=== PATIENT | female | born 1935 | race African-American/Black ===

== ENCOUNTER 2022-03-07 14:40 | Emergency (ER) | payer OTHER, MEDICAID ==
[~2022-03-07] VITALS: Ht 162.6 cm; Wt 54.5 kg
[2022-03-07] MEDS ORDERED: NIFE-33 PO (14:59)
[2022-03-07] MEDS ORDERED: HYDR-4134 PO (14:59)
[2022-03-07 16:17] LABS: BASOPHILS % 0.5 % (0.0-2.0); HEMATOCRIT. 34.8 % (36.0-48.0); LYMPHOCYTES % 20.3 % (20.0-50.0); MEAN CORPUSCULAR HEMOGLOBIN 26.2 pg (28.0-32.0); MEAN CORPUSCULAR VOLUME 83.3 fL (81.0-99.0); MEAN PLATELET VOLUME 9.3 fl (7.4-10.4); MONOCYTES % 10.7 % (2.0-8.0); NEUTROPHILS % 67.5 % (40.0-76.0); PLATELET 211 x1000/uL (130-400); RED BLOOD CELL COUNT 4.18 mill/uL (4.2-5.4); RED CELL DISTRIBUTION WIDTH 16.2 % (11.6-14.6)
[2022-03-07 16:22] LABS: CHLORIDE 107 mEq/L (98-107)
[2022-03-07 18:16] VITALS: BP 154/66
== END 2022-03-07 19:17 | disposition home or self-care (01) ==
LOC: ER 14:56
DX: I10 Essential (primary) hypertension (principal)
CPT/HCPCS: 36415; 80053; 85025; 93005; 99284

== ENCOUNTER 2022-11-19 14:46 | Emergency (ER) | payer OTHER, MEDICAID ==
[~2022-11-19] VITALS: Ht 157.5 cm; Wt 64.0 kg
[~2022-11-19 14:46] MED LIST: HYDR-4134 PO; NIFE-33 PO
[2022-11-19 16:02] LABS: CHLORIDE 104 mEq/L (98-107)
[2022-11-19 16:03] LABS: BASOPHILS % 1.2 % (0.0-2.0); EOSINOPHILS % 1.9 % (0.0-5.0); HEMATOCRIT. 35.6 % (36.0-48.0); HEMOGLOBIN. 11.3 g/dL (12.0-16.0); MEAN CORPUSCULAR HEMOGLOBIN 26.2 pg (28.0-32.0); MEAN CORPUSCULAR VOLUME 82.8 fL (81.0-99.0); MONOCYTES % 6.7 % (2.0-8.0); NEUTROPHILS % 64.2 % (40.0-76.0); PLATELET 257 x1000/uL (130-400); RED CELL DISTRIBUTION WIDTH 16.1 % (11.6-14.6)
[2022-11-19 16:19] LABS: ETHANOL BLOOD < 10 mg/dL
[2022-11-19 16:36] LABS: CLARITY URINE CLEAR (CLEAR); COLOR URINE YELLOW (YELLOW); KETONES URINE NEGATIVE (NEGATIVE); LEUKOCYTE ESTERASE URINE TRACE (NEGATIVE); NITRITE URINE NEGATIVE (NEGATIVE); OCCULT BLOOD URINE NEGATIVE (NEGATIVE); PH URINE 5.5 (4.5-8.0); PROTEIN URINE NEGATIVE (NEGATIVE); SPECIFIC GRAVITY URINE 1.008 (1.005-1.030); UROBILINOGEN URINE 0.2 E.U./dL (0.2-1.0)
[2022-11-19 16:46] LABS: *AMPHETAMINES SCREEN URINE NEGATIVE (NEGATIVE); *BARBITURATES SCREEN URINE NEGATIVE (NEGATIVE); *BENZODIAZEPINES SCREEN URINE NEGATIVE (NEGATIVE); *COCAINE SCREEN URINE NEGATIVE (NEGATIVE); CANNABINOID URINE SCREEN NEGATIVE (NEGATIVE); METHADONE URINE SCREEN NEGATIVE (NEGATIVE); OPIATES URINE SCREEN NEGATIVE (NEGATIVE); PHENCYCLIDINE URINE SCREEN NEGATIVE (NEGATIVE)
[2022-11-19] MEDS ORDERED: HYDROCODONE/ACETAMINOPHEN 5/325MG TABLET PO ONE (17:15)
[2022-11-19 20:31] VITALS: BP 153/73
== END 2022-11-19 20:37 | disposition home or self-care (01) ==
LOC: ER 14:46
DX: I10 Essential (primary) hypertension (principal)
CPT/HCPCS: 36415; 71045; 80053; 80305; 80320; 81003; 84443; 84484; 85025; 99285; G0480